=== PATIENT | female | born 1945 | race Caucasian/White ===

== ENCOUNTER 2017-10-03 15:37 | Observation (INO) ==
[2017-10-03] MEDS ORDERED: 0.9 % Sodium Chloride 500 ML IVC ONE ×2 (16:34→17:35)
[2017-10-03 17:06] LABS: Hematocrit 36.2 % (35.3-44.9); Hemoglobin 12.7 g/dL (11.5-15.4); Mean Corpuscular HGB Conc 35.1 g/dL (31.6-35.5); Mean Corpuscular Hemoglobin 29.1 pg (28.0-33.3); Mean Platelet Volume 9.3 fL (9.4-12.4); Platelet Count 302 K/mcL (140-400); Red Blood Count 4.36 M/mcL (3.82-4.97); Red Cell Distribution Width 11.8 % (11.5-14.5)
--- NOTE | 2017-10-03 17:10 | Emergency Department Note ---
Disposition Clinical Impression: Hyponatremia Syncope Qualifiers: Syncope type: unspecified Qualified Code(s): R55 - Syncope and collapse Disposition: Admitted As Inpatient Condition: Fair Referrals: Beto Lugo MD [Primary Care Provider] - Forms: ED Satisfaction Letter Time of Disposition: 18:24 Syncope HPI - General Chief Complaint: ED Syncope Stated Complaint: Need fluids Time Seen by Provider: 10/03/17 16:14 Source: patient Limitations: no limitations Nursing Notes Reviewed: Yes Vital Signs Reviewed: Yes - History of Present Illness HPI Narrative: Patient did get up to go to the bathroom last night and she did become lightheaded and had a syncopal episode. Was able to lay herself down on the grandson was no injury. She thinks she was unconscious for about 1 minute. She denies any seizure or shaking activity, biting of the tongue or blood in the mouth, urinary or fecal incontinence or postictal phase. The patient does not have any numbness or weakness of the extremities, slurred speech, facial droop or confusion. No complaint of pain in the head, neck, chest, abdomen or back. Specifically no chest pain or tightness or discomfort or pressure. No vomiting or diarrhea. No blood in the urine or stool. She did have a renal imaging study done yesterday. She has had several episodes of vomiting this morning. Social history: No smoking or alcohol - Related Data Home Medications Medication Instructions Recorded Confirmed Levothyroxine Sodium [Synthroid] 137 mcg PO QAM 03/09/16 10/03/17 Pravastatin Sodium [Pravachol] 20 mg PO HS 03/09/16 10/03/17 Sertraline [Zoloft] 50 mg PO DAILY 03/09/16 10/03/17 Losartan/Hydrochlorothiazide 1 each PO DAILY 10/03/17 10/03/17 [Hyzaar 100-25 Tablet] Multivitamin [One Daily Essential] 1 each PO DAILY 10/03/17 10/03/17 amLODIPine [Norvasc] 5 mg PO DAILY 10/03/17 10/03/17 Allergies Allergy/AdvReac Type Severity Reaction Status Date / Time No Known Allergies Allergy Verified 03/09/16 12:15 Review of Systems: As Per HPI Past Medical History - Past Medical History Medical history: Reports: hyperlipidemia, hypertension, renal disease, thyroid disease Psychiatric history: Reports: no psych history LETTERER history: Reports: bilateral tubal ligation - Social History Smoking Status: Never smoker Smokeless Tobacco Status: No Alcohol use: Reports: none, rarely Drug use: Reports: none Physical Exam CONSTITUTIONAL: Well-appearing; well-nourished; A&O X3, in no apparent distress HEAD: Normocephalic; atraumatic. EYES: PERRL, EOMI, no scleral icterus NOSE: The nose is normal in appearance without rhinorrhea NECK: Supple without rigidity, no THEA, no pain on palpation posterior cervical spine RESP: Normal chest excursion with respiration; breath sounds clear and equal bilaterally; no wheezes, rhonchi, or rales CARD: Regular rhythm, without murmurs, rub or gallop ABD: Non-distended; non-tender, soft, without rigidity, rebound or guarding SKIN: Normal for age and race; warm and dry; no apparent lesions, no rash NEUROLOGICAL: Patient is alert and oriented times three. Cranial nerves III- XII are intact. Sensory and motor functions are intact. Strength is 5/5 for flexion and extension in all 4 extremities. Patellar DTRS are equal and intact. Finger to nose testing is equal and normal bilaterally. - General Limitations: no limitations General appearance: alert Course Vital Signs Temperature 98.3 F 10/03/17 15:47 Pulse Rate 90 10/03/17 15:47 Respiratory Rate 18 10/03/17 15:47 Blood Pressure 139/81 10/03/17 15:47 O2 Sat by Pulse Oximetry 100 10/03/17 15:47 Temperature 98.3 F 10/03/17 15:47 Pulse Rate 92 10/03/17 17:51 Respiratory Rate 16 10/03/17 17:51 Blood Pressure 114/73 10/03/17 17:51 O2 Sat by Pulse Oximetry 97 10/03/17 17:51 Oxygen Delivery Oxygen Delivery Room Air Syncope - MDM Narrative Medical decision making narrative: Patient was sent over by the biopharmaceutical rep and I do have labs ordered, IV fluids , patient will be reassessed. I did review the EKG showing normal sinus rhythm with rate of 89 and I do not see evidence of QT prolongation, hypertrophic cardiomyopathy, WPW or Brugada syndrome patiently watched on the credit card specialist and pulse oximeter. She will receive IV fluids. 1712 I did review the patient's labs and she does have significant hyponatremia. I did write for an additional 500 mL of normal saline. The patient will be admitted to the hospital and the case was discussed with the hospitalist who accepts the patient for admission. I will also replace potassium with oral potassium. The patient is well appearance at this time with his new diagnosis of hyponatremia this is concerning he does need further evaluation. Nephrology was consulted. 1824 - Lab Data Result diagrams: 10/03/17 14:56 10/03/17 14:56 Lab Results 10/03/17 10/03/17 10/03/17 Range/Units 14:56 14:56 14:56 WBC 11.6 H (4.3-11.1) K/mcL RBC 4.36 (3.82-4.97) M/mcL Hgb 12.7 (11.5-15.4) g/dL Hct 36.2 (35.3-44.9) % MCV 83.0 (83.0-100.0) fL MCH 29.1 (28.0-33.3) pg MCHC 35.1 (31.6-35.5) g/dL RDW 11.8 (11.5-14.5) % Plt Count 302 (140-400) K/mcL MPV 9.3 L (9.4-12.4) fL Sodium 124 L (136-145) mEq/L Potassium 3.2 L (3.5-5.1) mEq/L Chloride 87 L (98-107) mEq/L Carbon Dioxide 27 (23-29) mEq/L BUN 11 (8-23) mg/dL Creatinine 0.79 (0.60-1.20) mg/dL Est GFR ( Amer) > 60 (> 60) Est GFR (Non-Af Amer) > 60 (> 60) BUN/Creatinine Ratio 14 (6-26) Glucose 124 H (70-105) mg/dL Calculated Osmolality 259 L (280-300) Calcium 9.8 (8.6-10.3) mg/dL Troponin I < 0.03 (< 0.04) ng/mL
[2017-10-03 17:21] LABS: BUN/Creatinine Ratio 14 (6-26); Blood Urea Nitrogen 11 mg/dL (8-23); Calcium 9.8 mg/dL (8.6-10.3); Carbon Dioxide 27 mEq/L (23-29); Chloride 87 mEq/L (98-107); Glucose 124 mg/dL (70-105); Osmolality,Calculated 259 (280-300); Potassium 3.2 mEq/L (3.5-5.1); Sodium 124 mEq/L (136-145); eGFR For African Americans > 60 (> 60); eGFR For Non-African Americans > 60 (> 60)
[2017-10-03] MEDS ORDERED: Ondansetron 4 MG/2 ML VIAL IVP PRN (18:27)
[2017-10-03] MEDS ORDERED: *HR* OxyCODONE Immed Rel 5 MG TABLET PO PRN (18:27)
[2017-10-03] MEDS ORDERED: Acetaminophen 325 MG TABLET PO PRN (18:27)
[2017-10-03] MEDS ORDERED: Naloxone 0.4 MG/ML INJ IVP PRN (18:27)
--- NOTE | 2017-10-03 18:34 | Internal Med History&Physical ---
Date of Encounter: 10/03/17 Time of Encounter: 18:30 Assessment and Plan (1) Hyponatremia Current visit: Yes Status: Acute Syncopal episode likely related to hyponatremia, with increased water intake Order TSH, cortisol, uric acid, order also urine sodium and urine osmolality Consider fluid restriction after evaluating test results Check orthostatics Monitor sodium very closely every 4 hours Hold hydrochlorothiazide Omeprazole for GI prophylaxis and some potatoes heparin for DVT prophylaxis. The patient will be admitted for observation. Full code. Time spent on this admission 40 minutes. High risk of falling (2) Syncope Current visit: Yes Status: Acute Qualifiers: Syncope type: unspecified Qualified Code(s): R55 - Syncope and collapse (3) Hypokalemia Current visit: Yes Status: Acute Replete as needed (4) Hypertension Current visit: Yes Status: Acute Continue losartan Qualifiers: Hypertension type: essential hypertension Qualified Code(s): I10 - Essential (primary) hypertension (5) Depression Current visit: Yes Status: Acute Qualifiers: Depression Type: major depressive disorder Active/Remission status: remission status unspecified Qualified Code(s): F32.9 - Major depressive disorder, single episode, unspecified (6) CKD (chronic kidney disease) stage 3, GFR 30-59 ml/min Current visit: Yes Status: Acute Internal Medicine - H&P: HPI Chief complaint: Syncope Admitted From: Emergency Dept History of present illness: Ms. Thompson is a 72 year old female with a past medical history hypothyroidism, depression, chronic kidney disease stage III who underwent yesterday a nuclear renal scan and was scheduled to see Dr. Paulino today. The patient started drinking large amounts of water , apparently this morning she passed out at home while being in the bathroom. She did not hit her head, there was no evidence of seizures. Ready for these episodes she felt lightheaded. Currently she denies any symptoms. Was referred to the ER by her supervisor covering and lining. Sodium was 124 and was normal before. Potassium was 3.[address] scan of the head was unremarkable and chest x-ray was normal. The patient has been also taking losartan with hydrochlorothiazide. Heart rate is 90 Past Med Surg Social Fam HX - Past Medical History Medical history: hyperlipidemia, hypertension, renal disease (Chronic kidney disease stage III), thyroid disease (Hypothyroidism) Psychiatric history: depression - Past Surgical History Surgical History: no surgical history - Social History Smoking Status: Never smoker Smokeless Tobacco Status: No Alcohol use: none, rarely Drug use: none - Additional Family History Additional family history: Father with [facility] - H&P: Meds Levothyroxine Sodium [Synthroid] 137 mcg PO QAM 03/09/16 [History] Pravastatin Sodium [Pravachol] 20 mg PO HS 03/09/16 [History] Sertraline [Zoloft] 50 mg PO DAILY 03/09/16 [History] Losartan/Hydrochlorothiazide [Hyzaar 100-25 Tablet] 1 each PO DAILY 10/03/17 [ History] Multivitamin [One Daily Essential] 1 each PO DAILY 10/03/17 [History] amLODIPine [Norvasc] 5 mg PO DAILY 10/03/17 [History] 3 Allergy/AdvReac Type Severity Reaction Status Date / Time No Known Allergies Allergy Verified 03/09/16 12:15 All Systems PM: A 10-system review of systems was performed and is negative for pertinent findings except as documented above in the HPI. Review of systems: Denies any symptoms. Other systems out of the 10 reviewed werer negative - Constitutional Vitals: Temp Pulse Resp BP Pulse Ox 98.3 F 92 16 114/73 97 10/03/17 15:47 10/03/17 17:51 10/03/17 17:51 10/03/17 17:51 10/03/17 17:51 General appearance: Present: A&O X 3 - Head Head exam: Present: atraumatic, normocephalic - Eye Eye exam: Present: PERRL, conjuntiva pink, sclera anicteric Pupils: Present: PERRL - Neck Neck exam general surgery: Present: supple, trachea midline. Absent: lymphadenopathy - Respiratory Respiratory exam: Present: CTAB. Absent: accessory muscle use, rales, rhonchi, wheezes - Cardiovascular Cardiovascular exam: Present: RRR, +S1, +S2. Absent: diastolic murmur, gallop, rubs, systolic murmur - GI/Abdominal GI/Abdominal exam: Present: normal bowel sounds, soft, no peritoneal signs. Absent: distended, tenderness - Extremities Exam Extremities exam: Present: warm, radial pulses palpable and symmetrical. Absent : calf tenderness, cyanotic, pedal edema - Neurological Exam Neurological exam: Present: CN II-XII intact, oriented X3, no focal deficits. Absent: pronater drift, facial droop, speech deficit - Skin Skin exam: Present: dry, intact Internal Med - H&P Results - Labs CBC & Chem 7: 10/03/17 14:56 10/03/17 14:56 Labs: Short CBC 10/03/17 Range/Units 14:56 WBC 11.6 H (4.3-11.1) K/mcL Hgb 12.7 (11.5-15.4) g/dL Hct 36.2 (35.3-44.9) % Plt Count 302 (140-400) K/mcL BMP 10/03/17 14:56 Sodium 124 L Potassium 3.2 L Chloride 87 L Carbon Dioxide 27 BUN 11 Creatinine 0.79 Glucose 124 H Calcium 9.8 Cardiac Enzymes 10/03/17 Range/Units 14:56 Troponin I < 0.03 (< 0.04) ng/mL - Impressions ITS Impressions Chest X-Ray 10/03/17 16:34 IMPRESSION: No acute process. D/ / Clyde Escudero MD / Clyde Escudero MD Interpreting Provider: Clyde Escudero MD Head CT 10/03/17 16:34 IMPRESSION: No acute intracranial abnormality. D/ / Amrit Roberts MD / Amrit Roberts MD Interpreting Provider: Amrit Roberts MD
[2017-10-03 19:17] LABS: Uric Acid 3.4 mg/dL (2.3-7.6)
[2017-10-03 19:47] LABS: Thyroid Stimulating Hormone 1.632 mcIU/mL (0.340-5.600)
[2017-10-03 23:49] LABS: Sodium, Urine 17.3 mEq/L
[2017-10-04 01:06] LABS: BUN/Creatinine Ratio 12 (6-26); Blood Urea Nitrogen 9 mg/dL (8-23); Carbon Dioxide 27 mEq/L (23-29); Chloride 93 mEq/L (98-107); Glucose 111 mg/dL (70-105); Osmolality,Calculated 265 (280-300); Potassium 3.1 mEq/L (3.5-5.1); Sodium 128 mEq/L (136-145); eGFR For African Americans > 60 (> 60); eGFR For Non-African Americans > 60 (> 60)
[2017-10-04] MEDS ORDERED: *HR* Heparin 5,000 UNIT/ML VIAL SQ SCH (06:00)
[2017-10-04] MEDS ORDERED: amLODIPine 5 MG TABLET PO SCH (09:00)
[2017-10-04 10:20] VITALS: BP 116/70
--- NOTE | 2017-10-04 13:37 | Discharge Summary ---
Date of Encounter: 10/04/17 Time of Encounter: 13:31 - Discharge Diagnosis (1) Hyponatremia Priority: Primary Status: Acute Comments: Patient was at the nephrologists office yesterday and found to be hyponatremic at 124, was placed on fluid restrictions and sodium has normalized to [address] Allred and discussed the patient's status. She stated she could be discharged home on the fluid restrictions and follow-up with Dr. Myers early next week. The patient states she had been flushing her system with water after having a nuclear scan earlier in the week. She is also on a dual blood pressure medicine with hydrochlorothiazide. Orthostatic blood pressures were normal, TSH, cortisol, uric acid were within normal limits. Urine osmolality was 174, urine sodium was 17.3. (2) Syncope Priority: Primary Status: Acute Comments: Patient with a syncopal episode likely related to hyponatremia. CT of the head was obtained with nothing acute. Stable overnight with no further episodes of syncope noted Qualifiers: Syncope type: unspecified Qualified Code(s): R55 - Syncope and collapse (3) Hypokalemia Priority: Primary Status: Acute Comments: Replaced and recheck (4) CKD (chronic kidney disease) stage 3, GFR 30-59 ml/min Priority: Secondary Status: Acute Comments: BUN and creatinine baseline - Discharge Medications Prescriptions: Losartan [Cozaar] 100 mg PO DAILY #30 tablet Home Medications: Levothyroxine Sodium [Synthroid] 137 mcg PO QAM 03/09/16 [History] Pravastatin Sodium [Pravachol] 20 mg PO HS 03/09/16 [History] Sertraline [Zoloft] 50 mg PO DAILY 03/09/16 [History] Multivitamin [One Daily Essential] 1 each PO DAILY 10/03/17 [History] amLODIPine [Norvasc] 5 mg PO DAILY 10/03/17 [History] Losartan [Cozaar] 100 mg PO DAILY #30 tablet 10/04/17 [Rx] Allergies/Adverse Reactions: 3 Allergy/AdvReac Type Severity Reaction Status Date / Time No Known Allergies Allergy Verified 03/09/16 12:15 Date of admission: 10/03/17 18:53 Primary care physician: Beto Lugo MD Discharging clinician: Pauline Juarez Anticipated date of discharge: 01/26/18 - Patient Status Disposition: Home, Self-Care Condition: Good Functional capacity at discharge: independent ambulation Overall status at discharge: patient is back to baseline - Discharge Instructions Follow Up With: Beto Lugo MD [Primary Care Provider] - Louis Paulino DO [Partnered Physician] - (please follow up first of next week) - Diet and Activity Activity: resume usual activities as tolerated Diet: other (Continue fluid restrictions as directed at 750 cc a day) Interval History: Patient denies chest pain, shortness of breath, nausea, abdominal discomfort, changes in bowel or bladder function, syncope, blurry vision, headache or any other complaints. She is very anxious for discharge. She will follow-up with her physician Dr. Myers as directed next week. Discussed her lab values and medication changes and she is in agreement and she will continue her fluid restrictions at home. Hospital course: Please see details in the assessment and plan - Time Spent with Patient Total time spent providing and/or coordinating discharge services: Less than 30 minutes - Constitutional Vitals: Temp Pulse Resp BP Pulse Ox 98.5 F 84 16 116/70 98 10/04/17 10:19 10/04/17 10:19 10/04/17 10:19 10/04/17 10:19 10/04/17 10:19 General appearance: Present: A&O X 3
--- NOTE | 2017-10-05 10:14 | Electrocardiograph Report ---
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
== END 2017-10-04 15:15 | disposition home or self-care (01) ==
LOC: 3BNU 15:37 → EMEROO 15:37 → 3BNU 20:18
PROVIDERS: ADMIT Internal Medicine; ATTEND Registered Nurse